=== PATIENT | female | born 1990 | race Caucasian/White ===

== ENCOUNTER 2016-07-15 13:44 | Emergency (ER) | payer OTHER ==
[~2016-07-15] VITALS: Ht 162.6 cm; Wt 113.4 kg
[~2016-07-15 13:44] MED LIST: DECADRON2 MG PO; FLEXERIL10 MG PO; MEDROL DOSEPAK1 PAC PO; NAPROXEN500 MG PO; PERCOCET 325 MG1 TA2 PO; VALIUM5 M1 PO
--- NOTE | 2016-07-15 15:31 | ED NECK/BACK PAIN COMPLAINT ---
History of Present Illness General Chief Complaint: Low Back Pain/Injury Stated Complaint: BACK AND LEG PAIN S/P "FALLING IN HOLE" 1WKA GO Source: patient Exam Limitations: no limitations Vital Signs & Intake/Output Vital Signs & Intake/Output Vital Signs Date Time Temp Pulse Resp B/P B/P Pulse O2 O2 Flow FiO2 Mean Ox Delivery Rate 07/15 1725 98.0 70 18 118/74 98 Room Air Room Air 07/15 1349 97.7 69 20 121/80 97 Room Air Allergies Coded Allergies: Penicillins (RASH 07/15/16) amoxicillin (RASH 07/15/16) cefaclor (RASH 07/15/16) Reconcile Medications Methocarbamol (Robaxin) 500 MG TABLET 1 TAB PO TID PRN muscle spasms Methylprednisolone. (Medrol) 4 MG TAB.DS.PK 1 DP PO AD sciatica 6 on day 1 then reduce by one tablet daily until gone Oxycodone HCl/Acetaminophen (Percocet 5-325 MG Tablet) 5 MG-325 MG TABLET 1 TAB PO Q6HR PRN pain Triage Note: RUNNING IN HER YARD LAST WEEK AND STEPPED INTO A HOLE INJURING LOWER BACK AND THE PAIN RUNS THROUGH HER BUTTOCKS DOWN HER LEFT LEG Triage Nurses Notes Reviewed? yes Onset: Abrupt Duration: day(s): (6) Timing: remote history Quality/Severity: severe Location: lumbar spine, paraspinous muscles Radiation: buttocks, upper legs, lower legs Context: running Method of Injury: twisted Loss of Consciousness: no loss of consciousness Modifying Factors: immobilization : No Patient currently breastfeeds: No HPI: Patient is a 25-year-old female with history of chronic back pain presenting to the emergency department complaining of worsening left lower back pain over the past 6 days. She reports that it started while she was running on her lawn and accidentally stepped in a ditch. She felt something pop in her back immediately. Denies any lark show any weakness. No urinary incontinence or retention. Since then she's had pain in the left side of her back that radiates down her leg intermittently. (CAMRYN DE OLIVEIRA,ZAIDA) Past History Travel History Traveled to [place] past 21 day No Medical History Any Pertinent Medical History? see below for history Musculoskeletal: back sx History of MRSA: No History of VRE: No History of CDIFF: No Tetanus Vaccine: 04/04/11 Surgical History Surgical History: lumbar lamenectomy Psychosocial History Who do you live with Daughter Services at Home None What is your primary language Gambian Tobacco Use: Current Not Daily Daily Tobacco Use Amount/Type: =< 4 Cigarettes daily ETOH Use: occasional use Illicit Drug Use: denies illicit drug use Family History Hx Contributory? No (ZAIDA ALMEIDA) Review of Systems Review of Systems Constitutional: Reports: no symptoms. Comments Review of systems: See HPI, All other systems negative. Constitutional, no chills fever or weight loss HEENT: No visual changes no sore throat no congestion Cardiovascular: No chest pain ,palpitation , orthopnea or ankle swelling Skin, no jaundice no rashes Respiratory: No dyspnea cough sputum or hemoptysis GI: No nausea no vomiting : No dysuria No hematuria Muscle skeletal: no neck pain, Neurologic: no confusion no brooks Psych: No stress anxiety or depression,. Heme/endocrine: No bruising no bleeding no polyuria or polydipsia Immunology: No splenectomy or history of AIDS (ZAIDA ALMEIDA) Physical Exam Physical Exam General Appearance: no apparent distress, alert, awake, obese Neck: normal inspection, supple, full range of motion, normal alignment Comments: Well-developed well-nourished person in no acute distress HEENT: Pupils equally round and reactive to light and accommodation. Nose is atraumatic. Neck: Supple, no lymphadenopathy, normal range of motion without pain or tenderness, no C-spine tenderness. Back: Mild tenderness to palpation in the lumbar paraspinal muscles on the left side only. no bony tenderness along the cervical, thoracic or lumbar spine. Positive modified straight leg raise on the left. Limited range of motion with Fort flexion and back extension secondary to pain. Hands able to go to mid thigh with Forward flexion. Cardiovascular: Regular rate and rhythms no murmurs rubs or gallops, normal JVP Respiratory: Chest nontender. No respiratory distress.breath sounds clear to auscultation bilaterally Extremity: No edema, no calf tenderness to palpation, normal and equal pulses. Neuro: Alert oriented x3, motor sensory normal, patellar reflexes are 2+ bilaterally. Skin: No appreciable rash on exposed skin, skin is warm and dry.Old surgical scar noted in the lumbar region of the spine. No surrounding erythema or edema. Psych: Mood and affect is normal, memory and judgment is normal. (ZAIDA ALMEIDA) Progress Differential Diagnosis: cauda equina syn, herniated disc, myofascial strain, pyelo/UTI, T/L spine injury, ureterolithiasis Plan of Care: Laboratory Tests 07/15/16 1535: Urine Test Cancelled Diagnostic Imaging: Viewed by Me: Radiology Read. Discussed w/RAD: Radiology Read. Radiology Impression: PATIENT: FAITH RUDD PRESENT AGE: 25 PATIENT ACCOUNT NO: [id number] : 88 LOCATION: [facility] ORDERING PHYSICIAN: ZAIDA DE OLIVEIRA SERVICE DATE: 07/15/16 EXAM TYPE: RAD - XRY-LUMBOSACRAL SPINE 4 VIEWS EXAMINATION: XR LUMBOSACRAL SPINE CLINICAL INFORMATION: Evaluate for compression injury COMPARISON: 03/21/2013 TECHNIQUE: AP and lateral views of the lumbosacral spine were obtained. FINDINGS : No evidence for an acute compression injury. Increasing abnormality at L4-L5 with loss of disc height and sclerotic change of the endplates. There is no listhesis. Mild scoliosis convex left is noted. Also there appears to be alteration of the spinous process from previous exam. This may be consistent with postsurgical change. Correlation needs to be made. The SI joints are patent. No lesion is seen. IMPRESSION: No convincing evidence for acute compression injury or listhesis. Increasing abnormality at L4-L5 as described in this young patient and this may be ongoing degenerative change versus other. Consider MR to further evaluate Also as described findings posteriorly. May be postsurgical in nature. Correlation recommended clinically. DICTATED BY: JAROD CAMPOVERDE MD DATE/TIME DICTATED:07/15/161619 TECHNICAL SERVICES COORDINATOR:IDANIA DATE/ TIME TRANSCRIBED:07/15/161619 CONFIDENTIAL, DO NOT COPY WITHOUT APPROPRIATE AUTHORIZATION. <Electronically signed in Other Vendor System> SIGNED BY: JAROD CAMPOVERDE MD 07/15/16 7062 Comments: Patient feeling improved after IM Toradol and Valium. She'll be discharged home with Medrol Dosepak, Robaxin and Percocet for severe pain. She'll follow-up with her neurosurgeon Dr. Schulz. d/w dr navas about x ray read- believes these are post op changes. (ZAIDA ALMEIDA) Departure Departure Time of Disposition: 1657 Disposition: HOME OR SELF CARE Condition: Stable Clinical Impression Primary Impression: Back pain Qualifiers: Back pain location: low back pain Chronicity: acute Back pain laterality: left Sciatica presence: with sciatica Sciatica laterality: sciatica of left side Qualified Code: M54.42 - Lumbago with sciatica, left side Referrals: BETSY ROBLES,LILLY Morfin PATIENT HAS NO PRIMARY CARE DR (PCP/Family) Additional Instructions: Follow-up with your primary care physician call to make an appointment. Take Medrol dosepak as prescribed to help with pain and inflammation. For severe pain take Percocet as prescribed. Take Robaxin to help relax muscles. Return for worsening symptoms or concerns. Departure Forms: Customer Survey General Discharge Information Prescriptions: Current Visit Scripts Methylprednisolone. (Medrol) 1 DP PO AD #1 DP 6 on day 1 then reduce by one tablet daily until gone Oxycodone HCl/Acetaminophen (Percocet 5-325 MG Tablet) 1 TAB PO Q6HR PRN pain #10 TAB Methocarbamol (Robaxin) 1 TAB PO TID PRN muscle spasms #15 TAB (ZAIDA ALMEIDA) PA/CANDLE WRAPPER Co-Sign Statement Statement: ED Attending supervision documentation- [] I saw and evaluated the patient. I have also reviewed all the pertinent lab results and diagnostic results. I agree with the findings and the plan of care as documented in the PA's/CANDLE WRAPPER's documentation. [x] I have reviewed the ED Record and agree with the PA's/CANDLE WRAPPER's documentation. [] Additions or exceptions (if any) to the PAs/CANDLE WRAPPER's note and plan are summarized below: [] (JAROD NAVAS DO
[2016-07-15] MEDS ORDERED: ROBAXIN500 M1 PO (16:37)
[2016-07-15] MEDS ORDERED: PERCOCET 5-3251 EACH PO (16:37)
[2016-07-15] MEDS ORDERED: MEDROL4 M2 PO (16:37)
--- NOTE | 2016-07-15 16:39 | RADIOLOGY REPORT ---
EXAMINATION: XR LUMBOSACRAL SPINE CLINICAL INFORMATION: Evaluate for compression injury COMPARISON: 03/21/2013 TECHNIQUE: AP and lateral views of the lumbosacral spine were obtained. FINDINGS: No evidence for an acute compression injury. Increasing abnormality at L4-L5 with loss of disc height and sclerotic change of the endplates. There is no listhesis. Mild scoliosis convex left is noted. Also there appears to be alteration of the spinous process from previous exam. This may be consistent with postsurgical change. Correlation needs to be made. The SI joints are patent. No lesion is seen. IMPRESSION: No convincing evidence for acute compression injury or listhesis. Increasing abnormality at L4-L5 as described in this young patient and this may be ongoing degenerative change versus other. Consider MR to further evaluate Also as described findings posteriorly. May be postsurgical in nature. Correlation recommended clinically.
[2016-07-15 17:25] VITALS: BP 118/74
== END 2016-07-15 17:26 ==
LOC: ERH 13:44
DX: M54.5 Low back pain (principal)
CPT/HCPCS: 72110; 81025; 96372; J1885; J3360